=== PATIENT | male | born 2000 | race Caucasian/White ===

== ENCOUNTER → 2020-07-11 16:53 | Outpatient (BNVA) | payer OTHER, SELFPAY | PROVIDERS: Family Provider Family Medicine; Visit Provider Nurse Practitioner Family | DX: Z20.828 Contact with and (suspected) exposure to other viral communicable diseases (principal) | CPT/HCPCS: 87635 ==

== ENCOUNTER → 2021-02-27 11:48 | Outpatient (BNVA) | payer OTHER, SELFPAY | PROVIDERS: Family Provider Family Medicine; Visit Provider Nurse Practitioner Family | DX: Z20.822 Contact with and (suspected) exposure to COVID-19 (principal) | CPT/HCPCS: 87635 ==

== ENCOUNTER → 2021-04-19 16:06 | Outpatient (BNVA) | payer SELFPAY | PROVIDERS: Family Provider Family Medicine; Visit Provider Emergency Medicine | DX: I49.8 Other specified cardiac arrhythmias (principal); F17.200 Nicotine dependence, unspecified, uncomplicated; J45.20 Mild intermittent asthma, uncomplicated | CPT/HCPCS: 80053; 80061; 84443; 85025 ==

== ENCOUNTER 2021-05-03 17:39 | Emergency (ER) | payer SELFPAY ==
[2021-05-03 17:49] VITALS: BP 141/69; PULSE 96; RESP 18; TEMP 36.4; O2SAT 98; BMI 29.5
--- NOTE | 2021-05-03 18:20 | ED_ITS ---
HPI - Arrhythmia/Palpitations General: Chief Complaint: Arrhythmia/Palpitations Stated Complaint: CP, sent Clinic after EKG was done Time Seen by Provider: 05/03/21 18:02 History of Present Illness: HPI narrative: 20-year-old male patient comes in today with complaints of chest discomfort and irregular heart rate. Patient had a physical done 2 to 3 weeks ago and was recommended to have his heart evaluated due to her irregular rhythm. On exam patient appears normal. Patient appears no acute distress. Patient denies any use of energy drinks or caffeinated beverages except an occasional Mountain Dew. Patient does use tobacco but has cut back considerably since the start of this cardiac issue. Patient denies any family history of early heart disease. Patient has had a history of COVID-19 in February 2021. Review of Systems General: Reports: 10 or more systems reviewed and unremarkable except in HPI and below Card: Reports: chest pain and irregular heart rhythm [facility] ED PFS: Medical History (Updated 05/03/21 @ 19:31 by ALFREDO Argueta) Asthma Atrial fib/flutter, transient Premature contractions, supraventricular Sinus arrhythmia Smoking addiction Tachycardia Social History Smoking and tobacco status: never smoked Alcohol intake: current Alcohol intake frequency: few times a month History of recent travel: No Physical Exam Const: COMMON NORMALS: no acute distress and patient oriented x3 GENERAL APPEARANCE: cooperative HENMT: COMMON NORMALS: normocephalic and Normal external nose present HEAD & SCALP: normal to inspection and normocephalic NOSE: Normal external nose present MOUTH: Normal oral and palatal mucosa present THROAT: posterior oropharynx normal Eye: GENERAL EYE: appearance normal, both eyes and all related structures Neck/C-Spine: COMMON NORMALS: full ROM Lymph: LYMPHATIC: no lymphadenopathy noted Chest: COMMONS NORMALS: normal inspection of the chest Resp: COMMON NORMALS: normal respiratory effort EFFORT & INSPECTION: Yes able to speak in complete sentences Cardio: COMMON NORMALS: regular rate RATE: regular rate RHYTHM: abnormal rhythm irregularly irregular GI: COMMON NORMALS: non-tender : COMMON NORMALS: Yes no CVA tenderness BLADDER/KIDNEY EXAM: Yes no CVA tenderness Back/Pelvis: COMMON NORMALS: no CVA tenderness and thoracic and lumbar spine normal to inspection Extremity: COMMON NORMALS: normal to inspection Neuro: COMMON NORMALS: patient oriented x3 and moves all extremities Psych: COMMON NORMALS: mental status grossly normal and cooperative Skin: COMMON NORMALS: no rashes or lesions noted GENERAL SKIN EXAM: no rashes or lesions noted Course Consultations: Consultation #1: Discussed patient with Dr. Jiménez, automobile inspector, he reviewed the EKG and noted a atrial tachycardia with occasional PAC, he recommended metoprolol tartrate 25 mg twice a day and to follow-up in the office. He also recommended that patient have a echocardiogram done. Prescription was written for the echocardiogram. assistant press operator was requested for echocardiogram follow-up. Patient agreed with plan. Time: 19:11 Vital Signs: Vital signs: Vital Signs Temperature 97.6 F 05/03/21 17:49 Pulse Rate 89 05/03/21 19:07 Respiratory Rate 19 H 05/03/21 19:07 Blood Pressure 141/69 05/03/21 17:49 Pulse Oximetry 97 05/03/21 19:07 MDM - Arrhythmia/Palpitations MDM Narrative: Medical decision making narrative: 20-year-old male patient was referred to the ER by primary care office for concerns of irregular heart rate. Patient had been evaluated 2 weeks ago for a physical and it was noted at that time he had irregular heart rate and was recommended to follow-up with automobile inspector. Patient was awaiting referral but had continued discomfort and irregular heart rate with tachycardia. On exam lungs were clear to auscultation. Abdomen soft nontender. Skin was warm and dry. Vital signs were normal. Differential diagnosis includes but not limited to sinus arrhythmia, premature contractions of the heart, cardiomyopathy, myocarditis. Laboratory values were unremarkable. Chest x-ray was normal. We noted on the EKG patient did have some atrial tachycardia with occasional PAC. I discussed this with Dr. Otero who recommended I discuss further with Dr. Nugent, automobile inspector on-call. Orthopedic Physician recommended that patient be started on metoprolol 25 mg twice a day and to follow-up in the office and have a echocardiogram completed outpatient. Patient agreed to plan for treatment and recommendations. Lab Data: Labs: Lab Results 05/03/21 05/03/21 05/03/21 18:15 18:15 18:15 WBC 8.8 10^3/uL 10^3/ uL (4.0-10.0) RBC 5.96 10^6/uL H 10 ^6/uL (4.1-5.3) Hgb 15.6 g/dL g/dL (11.7-16.6) Hct 47.1 % % (42.0-52.0) MCV 79.0 fl L fl (80-94) MCH 26.2 pg L pg (28.0-34.0) MCHC 33.1 g/dL g/dL (30.0-36.0) RDW 13.4 % % (12.1-15.1) Plt Count 301 10^3/cmm 10^3 /cmm (130-400) MPV 11.3 fL H fL (7.4-10.4) Neut % (Auto) 46.1 % % Lymph % (Auto) 42.0 % % [place] % (Auto) 7.8 % % Eos % (Auto) 3.2 % % Baso % (Auto) 0.7 % % Neut # (Auto) 4.05 10^3/uL 10^3 /uL (1.8-7.7) Lymph # (Auto) 3.7 10^3/uL 10^3/ uL (0.8-4.8) [place] # (Auto) 0.7 10^3/uL 10^3/ uL (0.2-0.9) Eos # (Auto) 0.3 10^3/uL 10^3/ uL (0.0-0.8) Baso # (Auto) 0.1 10^3/uL 10^3/ uL (0.0-0.1) Nucleated RBC % (a uto) 0 % % Nucleated RBCs # 0.0 /100WBC /100W BC Sodium 137 mmol/L mmol/L (136-145) Potassium 4.1 mmol/L mmol/L (3.5-5.1) Chloride 103 mmol/L mmol/L (98-107) Carbon Dioxide 26 mmol/L mmol/L (22-29) Anion Gap 12.1 (5-19) BUN 10 mg/dL mg/dL (6-20) Creatinine 0.5 mg/dL L mg/dL (0.7-1.2) GFR Calculation 207.9 mL/min H mL /min (90-130) Glucose 99 mg/dL mg/dL (65-115) Calculated Osmolal ity 283 mOsm/kg L mOs m/kg (285-295) Calcium 9.5 mg/dL mg/dL (8.5-10.5) Total Bilirubin 0.3 mg/dL mg/dL (0.15-1.2) AST 13 U/L U/L (0-40) ALT 12 U/L U/L (0-41) Alkaline Phosphata se 68 IU/L IU/L (40-130) Troponin T Gen 5 n g/L 6 ng/L ng/L (0-15) Total Protein 6.9 g/dL g/dL (6.6-8.7) Albumin 4.7 g/dL g/dL (3.5-5.2) Globulin 2.2 g/dL g/dL (1.3-4.6) TSH 0.77 uIU/mL uIU/m L (0.27-4.20) EKG Data^: EKG 1: Attestation: I personally reviewed and interpreted this EKG as follows: (1800, EKG shows a normal sinus rhythm with a regular rate at 98 bpm. No ectopy or ST elevation is noted. No prior exam is available for evaluation comparison.) EKG 2: Attestation: I personally reviewed and interpreted this EKG as follows: (1900 EKG shows a rate of 108 bpm, no ST elevation is noted, there is noted a sinus pause or PAC event. This was reviewed with Dr. Nugent who believes patient has a atrial tachycardia with occasional PAC.) Discharge Plan Discharge Patient Disposition: Home Clinical Impression: Atrial tachycardia, Premature contractions, supraventricular Condition: Stable Prescriptions: New metoprolol tartrate 25 mg tablet 25 mg PO BID Qty: 60 RF: 0 No Action albuterol sulfate [ProAir HFA] 90 mcg/actuation HFA aerosol inhaler 2 puff inhalation Q6H PRN (Reason: shortness of breath or wheezing) Qty: 8.5 RF: 0 Discharge Orders: Discharge ED (Routine); Ordered 05/03/21 Ordered By: Jimmy Parra Discharge Diet: Usual diet Discharge Activity: Increase activity as tolerated Patient Instructions: Atrial Tachycardia (ED), Opioid Safety Activity Restrictions/Additional Instructions: Take medication as directed. You will take metoprolol tartrate 25 mg twice a day until follow-up with automobile inspector. Drink plenty of water with medication. Change positions slowly as it may drop your heart rate and blood pressure. This is a normal occurrence to the medication but will improve with time. Follow-up with primary care. Return to the emergency department for new concerns or worsening symptoms. Coding Level of Care Code ED Driver'S License Reviewing Officer for Waldo Burks Exam Comprehensive
--- NOTE | 2021-05-03 18:21 | ECG_ITS ---
[facility] Test Date: 2021-05-03 Pat Name: Roldan Leon Department: Room: Gender: Male Mortgage Professional: : 2000 Requested By: Jimmy Shrestha Order Number: [id number] Issac MD: CHARLES BRISENO Measurements Intervals [place] Rate: 98 P: 46 HI: 136 QRS: 74 QRSD: 93 T: 17 QT: 314 QTc: 401 Interpretive Statements SINUS RHYTHM No previous ECG available for comparison Electronically Signed On 05-04-2021 0:10:11 CDT by CHARLES BRISENO [email or web address] f
--- NOTE | 2021-05-03 18:34 | XRR_ITS ---
PROCEDURE INFORMATION: Exam: XR Chest Exam date and time: 05/03/2021 6:34 PM Age: 20 years old Clinical indication: Pain; Chest pressure; Additional info: Chest discomfort TECHNIQUE: Imaging protocol: XR of the chest. Views: 1 view. COMPARISON: No relevant prior studies available. FINDINGS: Lungs: Unremarkable. No consolidation. Pleural spaces: Unremarkable. No pleural effusion. No pneumothorax. Heart/Mediastinum: Unremarkable. No cardiomegaly. Bones/joints: Unremarkable. XR/XR chest 1V portable [id number] IMPRESSION: No acute findings. Radiation Dose CTDIVOL = (mGy): DLP = (mGy-cm)
[2021-05-03 18:47] LABS: Basophils # 0.1 10^3/uL (0.0-0.1); Basophils % 0.7 %; Eosinophils # 0.3 10^3/uL (0.0-0.8); Eosinophils % 3.2 %; Hematocrit 47.1 % (42.0-52.0); Hemoglobin 15.6 g/dL (11.7-16.6); Lymphocytes # 3.7 10^3/uL (0.8-4.8); Mean Corpuscular HGB Conc 33.1 g/dL (30.0-36.0); Mean Corpuscular Hemoglobin 26.2 pg (28.0-34.0); Mean Platelet Volume 11.3 fL (7.4-10.4); Monocytes # 0.7 10^3/uL (0.2-0.9); Monocytes % 7.8 %; Neutrophils # 4.05 10^3/uL (1.8-7.7); Neutrophils % 46.1 %; Nucleated Red Blood Cells % 0 %; Platelet Count 301 10^3/cmm (130-400); Red Blood Count 5.96 10^6/uL (4.1-5.3); Red Cell Distribution Width 13.4 % (12.1-15.1); White Blood Count 8.8 10^3/uL (4.0-10.0)
--- NOTE | 2021-05-03 19:02 | PC.NURSE ---
report given to yasemin singh assumed care.
[2021-05-03 19:04] LABS: Troponin T (5th) Once 6 ng/L (0-15)
--- NOTE | 2021-05-03 19:05 | ECG_ITS ---
[facility] Test Date: 2021-05-03 Pat Name: Roldan Leon Department: Room: Gender: Male Safety Compliance Specialist: : 2000 Requested By: Jimmy Shrestha Order Number: [id number] Issac MD: CHARLES BRISENO Measurements Intervals [place] Rate: 108 P: AR: QRS: 77 QRSD: 94 T: 17 QT: 298 QTc: 401 Interpretive Statements ATRIAL FIBRILLATION WITH RAPID VENTRICULAR RESPONSE ABNORMAL RHYTHM ECG Compared to ECG 05/03/2021 17:49:15 Sinus rhythm no longer present Electronically Signed On 05-04-2021 13:57:41 CDT by CHARLES BRISENO [id number] f
[2021-05-03 19:07] VITALS: PULSE 89; RESP 19; O2SAT 97
[2021-05-03 19:11] LABS: Alanine Aminotransferase 12 U/L (0-41); Albumin Level 4.7 g/dL (3.5-5.2); Alkaline Phosphatase 68 IU/L (40-130); Anion Gap 12.1 (5-19); Aspartate Amino Transferase 13 U/L (0-40); Blood Urea Nitrogen 10 mg/dL (6-20); Calcium 9.5 mg/dL (8.5-10.5); Carbon Dioxide 26 mmol/L (22-29); Chloride 103 mmol/L (98-107); Globulin 2.2 g/dL (1.3-4.6); Glomerular Filtration Rate 207.9 mL/min (90-130); Glucose 99 mg/dL (65-115); Osmolality Calculated 283 mOsm/kg (285-295); Potassium 4.1 mmol/L (3.5-5.1); Sodium 137 mmol/L (136-145); Thyroid Stimulating Hormone 0.77 uIU/mL (0.27-4.20); Total Bilirubin 0.3 mg/dL (0.15-1.2); Total Protein 6.9 g/dL (6.6-8.7)
[2021-05-03] MEDS: metoprolol tartrate 25 mg Tablet PO (19:41)
[2021-05-03 19:45] VITALS: BP 135/85; PULSE 99; RESP 16; O2SAT 98
[2021-05-03 20:07] LABS: NT Pro B Type Natriuretic Pept 5 pg/mL (0-125)
--- NOTE | 2021-05-04 10:34 | DCPLANNER ---
Addendum entered by Danette Grimes 05/04/21 13:24: cost estimating manager also had message to schedule an out patient cardiac echo, manager of case faxed signed order to centralized scheduling, who will call patient with appointment information. Original Note: cost estimating manager had message to schedule a followup appointment for patient at [facility]. cost estimating manager called [facility], spoke with Lety, gave clinic patients information. A follow up appointment was scheduled for Sunday, May 23, 2021 at 1:[address] Coleman. cost estimating manager called phone number [phone], to speak with patient about appointment. A recording stated that it was a non working number. cost estimating manager also called phone number [phone], patients , and gave her the appointment information.
--- NOTE | 2021-05-25 09:44 | DCPLANNER ---
Patient has an cardiac echo scheduled for Saturday, June 21, 2021 at 7:15, centralized scheduling will call patient with appointment information.
--- NOTE | 2021-07-12 15:16 | DCPLANNER ---
Addendum entered by Danette Grimes 08/05/21 11:29: Patient had a follow up appointment scheduled with heart care - patient did attend appointment. Original Note: Patient had a follow up appointment scheduled for 06.21.21 for a cardiac echo - patient did attend appointment.
== END 2021-05-03 19:47 | disposition home or self-care (01) ==
PROVIDERS: Emergency Provider Nurse Practitioner Family
DX: I47.1 Supraventricular tachycardia (principal); I49.1 Atrial premature depolarization
CPT/HCPCS: 36415; 71045; 80053; 83880; 84443; 84484; 85025; 93005; 99283

== ENCOUNTER 2021-06-21 07:17 | Outpatient (CLI) | payer SELFPAY ==
--- NOTE | 2021-06-21 07:27 | USCV_ITS ---
Roldan Leon Age: 20 Gender: M : 2000 Exam Date: 06/21/2021 07:38 Ordering Phys: Jimmy Parra Technologist: JUWAN Exam Location: [facility] [place] Indication: CARD ARRTH BP: 138 / 98 HR: 80 Rhythm: Other Technical Quality: Adequate MEASUREMENTS (Male / Female) Normal Values 2D ECHO LV Diastolic Diameter PLAX 4.5 cm 4.2 - 5.9 / 3.9 - 5.3 cm LV Systolic Diameter PLAX 2.9 cm IVS Diastolic Thickness 0.6 cm 0.6 - 1.0 / 0.6 - 0.9 cm IVS Systolic Thickness 1.0 cm LVPW Diastolic Thickness 1.1 cm 0.6 - 1.0 / 0.6 - 0.9 cm LVPW Systolic Thickness 1.9 cm LVOT Diameter 2.0 cm LV Ejection Fraction 2D Teich 64.9 % LV Ejection Fraction MOD 2C 55.5 % LV Ejection Fraction 2C AL 55.4 % LA Diameter 3.1 cm LA Width 3.1 cm LA Height 4.0 cm RA Width 3.2 cm RA Height 4.3 cm Aorta at Sinotubular Diameter 2.7 cm M-MODE Aortic Annulus Diameter 3.1 cm LA Ao Ratio MM 1.1 DOPPLER AV Peak Velocity 134.0 cm/s LVOT Peak Velocity 99.0 cm/s AV Area Cont Eq vti 2.3 cm squared AV Area Cont Eq pk 2.3 cm squared RV Acceleration Time 0.1 s RV Ejection Time 0.3 s RV AcT/ET 0.4 FINDINGS Left Ventricle Normal left ventricular cavity size. Normal left ventricular systolic function. No regional wall motion abnormalities. Left ventricular ejection fraction is estimated at 60 %. In the presence of atrial fibrillation diastolic function cannot be assessed accurately. Right Ventricle The right ventricle is normal in size and function. RVSP could not be calculated due to incomplete tricuspid regurgitation velocity profile. Right Atrium The right atrium is normal in size. Left Atrium The left atrium is normal in size. Mitral Valve Structurally normal mitral valve without significant stenosis or prolapse. There is no mitral regurgitation. Aortic Valve Structurally normal aortic valve without significant sclerosis or stenosis. There is no aortic regurgitation. Tricuspid Valve Structurally normal tricuspid valve without significant stenosis or regurgitation. Pulmonic Valve Structurally normal pulmonic valve without significant stenosis. There is no pulmonic regurgitation. Pericardium Normal pericardium without effusion. Aorta Normal ascending aorta dimension. CONCLUSIONS 1-Normal left ventricular cavity size. Normal left ventricular systolic function. No regional wall motion abnormalities. Left ventricular ejection fraction is estimated at 60 %. In the presence of atrial fibrillation diastolic function cannot be assessed accurately. 2-No significant valve abnormalities. 3-There is no pericardial effusion. 4-The right ventricle is normal in size and function. RVSP could not be calculated due to incomplete tricuspid regurgitation velocity profil. 5-There is no pericardial effusion. 6-Right atrial pressure is around 5 mm of mercury. 7-There are no prior echocardiogram studies to compare. Patricia Nugent MD (Electronically Signed) Final Date: 21 June 2021 22:52 S
== END 2021-06-21 07:18 | disposition home or self-care (01) ==
PROVIDERS: Visit Provider Nurse Practitioner Family
DX: I49.9 Cardiac arrhythmia, unspecified (principal)
CPT/HCPCS: 93306